=== PATIENT | female | born 1925 | race Caucasian/White ===

== ENCOUNTER 2016-10-20 15:24 | Inpatient (IN) | payer OTHER ==
[~2016-10-20] VITALS: Ht 154.9 cm; Wt 82.5 kg
[~2016-10-20 15:24] MED LIST: AMBIEN5 MG; ATARAX,VISTARIL25 MG PO; CELEXA20 MG PO; CEPHALEXIN500 MG PO; COUMADIN2.5 MG PO; FUROSEMIDE40 MG PO; HYDROCHLO; IRON325 M1 PO; KENALOG,ARISTOC80 GM TP; LASIX40 MG; LASIX40 MG PO; LEVOTHROID,SY0.05 MG; LEVOTHYROXINE50 MCG PO; LIDOCAINE700 MG TD; LISINOPRIL; LISINOPRIL-HCT1 EAC3 PO; LO-DOSE ASPIRIN81 M1 PO; PERCOCET 5/31 TABLET PO; PREDNISONE10 MG PO; PREDNISONE5 M2; PRINZIDE 20-251 EACH; SIMVASTATIN40 M1; STOPAIN118 ML TP; SYNTHROID50 MCG PO; TRAMADOL HCL50 MG PO; TYLENOL REGULA325 MG PO; ULORIC40 MG PO; ULTRAM50 MG; VISTARIL25 MG PO; ZOCOR40 MG PO; ZOLPIDEM TARTRAT5 MG PO; ZYRTEC10 M2 PO
[2016-10-20 16:57] LABS: HEMATOCRIT 36.7 % (36.0-46.0); MCV 91.1 FL (83-99); MEAN PLAT.VOLUME 9.9 uM^3 (9.5-12.4); PLATELET COUNT 310 K/uL (156-360); RBC DIS.WIDTH-CV 12.8 % (11.8-14.6); RBC DIS.WIDTH-SD 42.1 % (39-53); RED BLOOD COUNT 4.03 M/uL (3.80-5.20); WHITE BLOOD COUNT 7.9 K/uL (4.1-10.2)
[2016-10-20 17:11] LABS: CHLORIDE 110 mEq/L (99-109); POTASSIUM 5.1 mEq/L (3.7-5.4); SODIUM 138 mEq/L (136-147)
[2016-10-20 17:12] LABS: GLUCOSE 108 mg/dL (70-99)
[2016-10-20 17:14] LABS: ANION GAP 11 MEQ/L (2-14)
[2016-10-20 17:16] LABS: GFR ESTIMATE (CALCULATED) 24 mL/min/
[2016-10-20 17:17] LABS: UREA NITROGEN (BUN) 39 mg/dL (9-23)
[2016-10-20 17:36] LABS: TROP-I INTERPRETATION NEGATIVE; TROPONIN-I 0.03 ng/mL (0.0-0.30)
[2016-10-20 18:28] LABS: ADD MIUA? YES; BILIRUBIN NEGATIVE; BLOOD TRACE; COLOR YELLOW ((YELLOW)); GLUCOSE (STRIP) NEGATIVE; KETONES NEGATIVE; LEUKOCYTES SMALL; NITRITE POSITIVE; PROTEIN (STRIP) NEGATIVE; SPECIFIC GRAVITY 1.011 (1.000-1.030); UROBILINOGEN 0.2 MG/DL (0.2-1.0)
[2016-10-20 18:44] LABS: BACTERIA 1+; CASTS NONE SEEN /LPF; CRYSTALS NONE SEEN; EPITHELIAL CELLS RARE; MUCUS NONE SEEN; RED BLOOD CELLS RARE /HPF (0-5); UCUL ADDED? NO; WHITE BLOOD CELLS RARE /HPF (0-5)
[2016-10-20 18:56] LABS: INFLUENZA A VIRAL ANTIGEN NEGATIVE; INFLUENZA B VIRAL ANTIGEN NEGATIVE
[2016-10-20] MEDS ORDERED: CEFPODOXIME PR100 MG PO (19:04)
[2016-10-20] MEDS ORDERED: NORVASC2.5 MG PO (20:15)
[2016-10-20] MEDS ORDERED: BENEFIBER98 GM PO (20:17)
[2016-10-20] MEDS ORDERED: LASIX20 MG PO (20:19)
[2016-10-20] MEDS ORDERED: MIRALAX17 GM PO (20:20)
[2016-10-20] MEDS ORDERED: VITAMIN D32000 UNI1 PO (20:21)
[2016-10-20] MEDS ORDERED: LIDOCAINE700 MG TD (20:23)
[2016-10-20] MEDS ORDERED: OCEAN BOTH NARES (20:24)
[2016-10-20] MEDS ORDERED: ESSENTIAL ENZYMES PO (20:27)
[2016-10-21 01:53] LABS: TROP-I INTERPRETATION NEGATIVE; TROPONIN-I 0.04 ng/mL (0.0-0.30)
[2016-10-21 03:38] VITALS: BP 182/75
[2016-10-21 04:54] VITALS: BP 141/67
[2016-10-21 08:08] VITALS: BP 134/63
[2016-10-21 08:54] LABS: HEMATOCRIT 34.4 % (36.0-46.0); MCH 29.2 PG (29.0-34.0); MCHC 31.7 G/DL (30.0-36.0); MCV 92.2 FL (83-99); PLATELET COUNT 283 K/uL (156-360); RBC DIS.WIDTH-CV 13.2 % (11.8-14.6); RBC DIS.WIDTH-SD 44.2 % (39-53); RED BLOOD COUNT 3.73 M/uL (3.80-5.20); WHITE BLOOD COUNT 7.2 K/uL (4.1-10.2)
[2016-10-21 09:13] LABS: ALKALINE PHOSPHATASE 68 IU/L (3-129); ANION GAP 10 MEQ/L (2-14); CHLORIDE 114 MEQ/L (99-109); GFR ESTIMATE (CALCULATED) 30 mL/min/; GLUCOSE 108 mg/dL (70-99); POTASSIUM 5.1 MEQ/L (3.7-5.4); SAMPLE HEMOLYSIS CHECK 0; SAMPLE ICTERIC CHECK 0; SAMPLE LIPEMIA CHECK 0; SODIUM 141 MEQ/L (136-147); TOTAL BILIRUBIN 0.3 MG/DL (0.0-1.0); UREA NITROGEN (BUN) 32 mg/dL (9-23)
[2016-10-21 09:16] LABS: TROP-I INTERPRETATION NEGATIVE; TROPONIN-I 0.02 ng/mL (0.0-0.30)
[2016-10-21 11:50] VITALS: BP 198/75
[2016-10-21 15:55] VITALS: BP 120/70
[2016-10-21 20:01] VITALS: BP 149/60
[2016-10-22 05:53] VITALS: BP 142/67
[2016-10-22 06:19] LABS: ANION GAP 12 MEQ/L (2-14); CHLORIDE 110 MEQ/L (99-109); GFR ESTIMATE (CALCULATED) 26 mL/min/; GLUCOSE 122 mg/dL (70-99); POTASSIUM 5.1 MEQ/L (3.7-5.4); SAMPLE HEMOLYSIS CHECK 0; SAMPLE ICTERIC CHECK 0; SAMPLE LIPEMIA CHECK 0; SODIUM 138 MEQ/L (136-147); UREA NITROGEN (BUN) 35 mg/dL (9-23)
[2016-10-22 08:20] VITALS: BP 161/65
[2016-10-22 12:22] VITALS: BP 131/58
[2016-10-22 15:36] VITALS: BP 134/71
[2016-10-22] MEDS ORDERED: BENZONATATE100 MG PO (16:16)
[2016-10-22] MEDS ORDERED: PREDNISONE10 MG PO (16:16)
[2016-10-22] MEDS ORDERED: DOXYCYCLINE HY100 M3 PO (16:16)
== END 2016-10-22 18:26 | disposition home health service (06) | DRG 202 ==
LOC: EME 15:24 → EDOF 20:58 → 5WEST 20:58
PROVIDERS: Emergency Medicine; Internal Medicine; Nurse Practitioner Adult Health
DX: J40 Bronchitis, not specified as acute or chronic (principal); E87.2 Acidosis; N39.0 Urinary tract infection, site not specified; I12.9 Hypertensive chronic kidney disease with stage 1 through stage 4 chronic kidney disease, or unspecified chronic kidney disease; N18.3 Chronic kidney disease, stage 3 (moderate); E86.0 Dehydration; E78.5 Hyperlipidemia, unspecified; E03.9 Hypothyroidism, unspecified; M35.3 Polymyalgia rheumatica; E66.9 Obesity, unspecified; Z68.34 Body mass index [BMI] 34.0-34.9, adult; M10.9 Gout, unspecified; I44.7 Left bundle-branch block, unspecified; M19.90 Unspecified osteoarthritis, unspecified site; Z60.2 Problems related to living alone; Z66 Do not resuscitate
CPT/HCPCS: 71020; 78582; 80048; 80053; 81003; 83880; 84484; 85027; 87077; 87086; 87186; 87502; 93005; 93306; 94640; 94640 76; 94760; 99202; 99281; 99285; A9540; A9567; G0378; G8978 GP CI; G8979 GP CH; G8980 GP CI; J0696; J1644; J2405; J7030; J7050; J7512